=== PATIENT | female | born 1940 | race Asian ===

== ENCOUNTER 2018-03-19 08:54 | Observation (INO) | payer OTHER, MEDICARE ==
[~2018-03-19] VITALS: Ht 149.9 cm; Wt 69.9 kg
[2018-03-19 12:00] VITALS: BP 123/70; TEMP 98.6
[2018-03-19 12:15] LABS: PLATELET COUNT 145 K/uL (152-353)
[2018-03-19 12:39] LABS: POTASSIUM 3.7 mmol/L (3.6-5.2)
[2018-03-19 15:19] VITALS: BP 125/71; TEMP 98; Ht 149.9 cm; Wt 69.9 kg
[2018-03-19 16:00] VITALS: BP 117/69; TEMP 98.7
[2018-03-19] MEDS ORDERED: MAGOX 400400 MG PO (17:49)
[2018-03-19] MEDS ORDERED: CALCIUM600 MG PO (17:50)
[2018-03-19] MEDS ORDERED: MONT10TA PO (17:51)
[2018-03-19] MEDS ORDERED: OMEPRAZOLE20 M2 PO (17:51)
[2018-03-19] MEDS ORDERED: UNITH DIRECT50 MCG PO (17:52)
[2018-03-19] MEDS ORDERED: SIMV20TA2 PO (17:53)
[2018-03-19 20:00] VITALS: BP 119/70; TEMP 98.8
[2018-03-20] VITALS: BP 100/54; TEMP 99
[2018-03-20 04:00] VITALS: BP 105/58; TEMP 99.1
[2018-03-20 08:00] VITALS: BP 125/72; TEMP 98.3
[2018-03-20 12:00] VITALS: BP 120/73; TEMP 98.3
--- NOTE | 2018-03-20 14:29 | NUR ---
DISCHARGE INSTRUCTIONS GIVEN. PT IS TO FOLLOW UP WITH HER PCP. PT IS TO TAKE LEVAQU[place] ONCE A DAY FOR FIVE DAYS. PT UNDERSTANDS ALL DISCHARGE INSTRUCTIONS. IV D/C'D PER DOCTORS ORDERS. PT LEFT VIA WC. NAD NOTED.
== END 2018-03-20 14:30 | disposition home or self-care (01) ==
LOC: MED/SURG 08:54
PROVIDERS: ADMIT Internal Medicine
DX: R53.1 Weakness (principal); T45.1X5A Adverse effect of antineoplastic and immunosuppressive drugs, initial encounter; K21.9 Gastro-esophageal reflux disease without esophagitis; C79.9 Secondary malignant neoplasm of unspecified site; C18.9 Malignant neoplasm of colon, unspecified; A08.8 Other specified intestinal infections; R19.7 Diarrhea, unspecified; E03.8 Other specified hypothyroidism; E78.00 Pure hypercholesterolemia, unspecified; N39.0 Urinary tract infection, site not specified
CPT/HCPCS: 36415; 80053; 81000; 85027; 87088; 96365; 96366; 99220; G0378; G0379; J0696

== ENCOUNTER 2019-05-22 14:22 | Emergency (ER) | payer OTHER, MEDICARE ==
[~2019-05-22] VITALS: Ht 149.9 cm; Wt 69.9 kg
[~2019-05-22 14:22] MED LIST: CALCIUM600 MG PO; MAGOX 400400 MG PO; MONT10TA PO; OMEPRAZOLE20 M2 PO; SIMV20TA2 PO; UNITH DIRECT50 MCG PO
[2019-05-22 16:06] LABS: PLATELET COUNT 191 K/uL (152-353)
[2019-05-22 16:19] LABS: POTASSIUM 4.1 mmol/L (3.6-5.2)
[2019-05-22 17:56] VITALS: BP 123/61; TEMP 97.7
== END 2019-05-22 17:59 | disposition home or self-care (01) ==
LOC: ED 14:22
PROVIDERS: Family Medicine
DX: E86.0 Dehydration (principal); R11.2 Nausea with vomiting, unspecified
CPT/HCPCS: 80053; 85027; 96360; 96374; 96375; 99284; J2405

== ENCOUNTER 2019-11-27 08:59 | Emergency (ER) | payer OTHER, MEDICARE ==
[~2019-11-27] VITALS: Ht 149.9 cm; Wt 64.4 kg
[2019-11-27 09:10] VITALS: TEMP 97.7
[2019-11-27 10:33] LABS: POTASSIUM 4.4 mmol/L (3.6-5.2)
[2019-11-27 10:45] LABS: PLATELET COUNT 229 K/uL (152-353)
[2019-11-27 12:59] VITALS: BP 148/77
== END 2019-11-27 12:59 | disposition home or self-care (01) ==
LOC: ED 08:59
PROVIDERS: Family Medicine
DX: E86.0 Dehydration (principal); R11.2 Nausea with vomiting, unspecified; N39.0 Urinary tract infection, site not specified
CPT/HCPCS: 80053; 81000; 85027; 87086; 87088; 96361; 96365; 96375; 99284; J0696; J2405